=== PATIENT | male | born 1970 | race Caucasian/White ===

== ENCOUNTER 2017-06-09 14:01 | Emergency (ER) | payer OTHER ==
--- NOTE | 2017-06-09 15:18 | EDPHY ---
H & P Time Seen by Provider: 06/09/17 15:06 HPI/ROS: Chief complaint. Dog bite HPI. 46-year-old male dog bite to the hand last night. He patient was walking on the street here in [place]. He says a dog that was not wearing a collar and seemed to be acting strangely came up and bit him on the hand and ran away. The dog is not known and not able to be found. Animal Control has not been notified. Bite was to the right hand. Patient is right handed. He denies focal weakness or paresthesias. No other injuries. ROS Constitutional. no fever/chills, no weakness Eyes. no problems with vision ENT. no sore throat, no nasal drainage Cardiovascular. no chest pain Respiratory. no shortness of breath, no cough Abdominal. no abdominal pain, no nausea/vomiting, no diarrhea . no problems urinating MS. no calf pain/swelling, no neck/back pain, no joint pain Skin. Dog bite right hand Lymph. no swollen glands Neuro. no headache, no dizziness, no difficulty walking or with speech Past Medical/Surgical History: Alcoholism Social History: Single, daily smoker, no alcohol today Smoking Status: Current some day smoker Physical Exam: General Appearance: Alert well-developed male mild distress vital signs stable Eyes: Pupils equal and round no pallor or injection. ENT, Mouth: Mucous membranes are moist. Respiratory: There are no retractions, lungs are clear to auscultation. Cardiovascular: Regular rate and rhythm. Gastrointestinal: Abdomen is soft and nontender, no masses, bowel sounds normal. Neurological: Awake and alert, sensory and motor exams grossly normal. Skin: Warm and dry, no rashes. Musculoskeletal: Neck is supple nontender. Extremities several small superficial lacerations to the dorsum of the right hand. Distal motor vascular sensitivity is intact. No evidence for retained foreign body or tendon laceration. No obvious evidence for infection currently. Psychiatric: Patient is oriented X 3, there is no agitation. Constitutional: Initial Vital Signs Temperature (C) 36.6 C 06/09/17 14:15 Heart Rate 70 06/09/17 14:15 Respiratory Rate 16 06/09/17 14:15 Blood Pressure 148/94 H 06/09/17 14:15 O2 Sat (%) 99 06/09/17 14:15 O2 Delivery Mode Room Air Allergies/Adverse Reactions: No Known Allergies Allergy (Verified 06/09/17 14:15) Home Medications: Medication Instructions Recorded Amoxicillin/Clavulanate Pot 875 mg PO BID #10 tab 06/09/17 [Augmentin 875 MG TAB (*)] Medical Decision Making Procedures: Rabies vaccine and rabies immune globulin 20 international units per kg are given. As much possible was infiltrated around the bite wound on the dorsum the right hand. ED Course/Re-evaluation: I consulted discussed the case with Dr. Hernández, infectious Disease who recommends rabies prophylaxis. Animal Control is here seeing patient The patient and I discussed treatment plan including criteria for return and importance of follow-up and further evaluation to complete the rabies series. He expresses understanding and agreement Differential Diagnosis: Low likelihood of rabies however this dog is not known was apparently acting strangely and bit the hand of this patient and then ran away. We do not know anything about the dog so we will provide antibiotics to prevent infection and rabies prophylaxis. Departure - Departure Disposition: Home, Routine, Self-Care Clinical Impression: Dog bite Qualifiers: Encounter type: initial encounter Qualified Code(s): W54.0XXA - Bitten by dog, initial encounter Condition: Good Instructions: Animal Bite (ED) Additional Instructions: Augmentin as antibiotic. Return for signs of infection Ibuprofen 600 mg every 6 hr for discomfort You're given year 1st rabies immunizations today. The series needs to have you have further shots on day 7, day 14, day 21. I will give you the name of infectious disease physician and you can follow up in their office to complete the rabies immunization series Referrals: Lisseth Tenorio MD [Primary Care Provider] - As per Instructions Cesar Hernández MD [Medical Doctor] - 5-7 days, call for appt. Prescriptions: Amoxicillin/Clavulanate Pot [Augmentin 875 MG TAB (*)] 875 mg PO BID #10 tab
[2017-06-09] MEDS ORDERED: RABIES IMMUNE GLOBULIN 300 UNIT/2 ML VIAL IM ONE ×2 (15:50→17:01)
[2017-06-09] MEDS ORDERED: RABIES VACC, HUMAN DIPLOID/PF 2.5 UNIT VIAL (RABAVERT) IM ONE (15:50)
[2017-06-09 17:12] VITALS: BP 140/87
== END 2017-06-09 17:00 | disposition home or self-care (01) ==
DX: S61.451A Open bite of right hand, initial encounter (principal); F17.200 Nicotine dependence, unspecified, uncomplicated; Z23 Encounter for immunization; W54.0XXA Bitten by dog, initial encounter; Y92.410 Unspecified street and highway as the place of occurrence of the external cause; Y99.8 Other external cause status; Y93.01 Activity, walking, marching and hiking